=== PATIENT | male | born 2000 | race Caucasian/White ===

== ENCOUNTER 2022-10-15 17:24 | Emergency (ER) | payer MEDICAID, SELFPAY ==
[2022-10-15 19:08] VITALS: BP 125/77; PULSE 85; RESP 20; TEMP 36.1; O2SAT 99; BMI 31.1
--- NOTE | 2022-10-15 19:09 | ED_ITS ---
HPI - Abdominal Pain General Chief Complaint: General Medical <Marisol Nielsen CNP - Last Filed: 10/15/22 19:17> Stated Complaint: Vomiting blood, R lower abdominal pain <Marisol Nielsen CNP - Last Filed: 10/15/22 19:17> Time Seen by Provider: 10/16/22 00:01 <Marisol Nielsen CNP - Last Filed: 10/15/22 19:17> Source: patient <Jose C Cazares MD - Last Filed: 10/16/22 00:34> Mode of arrival: ambulatory <Jose C Cazares MD - Last Filed: 10/16/22 00:34> Limitations: no limitations <Jose C Cazares MD - Last Filed: 10/16/22 00:34> History of Present Illness HPI narrative: Patient otherwise healthy been vomiting for last few days initially had food content now which is vomit blood streaks of blood once or twice small am ount no blood clots no melena use of NSAID complaining of pain in epigastric area mild burning sensation <Jose C Cazares MD - Last Filed: 10/16/22 00:34> Related Data Home Medications: Previous Rx's Medication Instructions Recorded ondansetron 4 mg disintegrating 4 mg PO Q6-8H PRN nausea and 10/16/22 tablet vomiting #7 tabs pantoprazole 40 mg tablet,delayed 40 mg PO DAILY #30 tabs 10/16/22 release (Protonix) sucralfate 1 gram tablet 1 g PO BID #60 tabs 10/16/22 <Marisol Nielsen CNP - Last Filed: 10/15/22 19:17> Allergies/Adverse Reactions: Allergies Allergy/AdvReac Type Severity Reaction Status Date / Time No Known Allergies Allergy Verified 10/15/22 19:12 [No Known Allergies*] <Marisol Nielsen CNP - Last Filed: 10/15/22 19:17> Review of Systems Review of Systems Yes all other systems are reviewed and are negative <Jose C Cazares MD - Last Filed: 10/16/22 00:34> PMFSH Social History Social History: Social History Advance Directives: No Advance Directives Information Provided: No <Marisol NielsenBIANCA - Last Filed: 10/15/22 19:17> Physical Exam ED Vital Signs: Vital Signs - 24 hr 10/15/22 19:08 Temperature 96.9 F Pulse Rate 85 Respiratory Rate 20 Blood Pressure 125/77 Pulse Oximetry 99 Oxygen Delivery Method Room Air BMI result Body Mass Index 31.1 <Marisol NielsenBIANCA - Last Filed: 10/15/22 19:17> Vital Signs - 24 hr 10/15/22 19:08 Temperature 96.9 F Pulse Rate 85 Respiratory Rate 20 Blood Pressure 125/77 Pulse Oximetry 99 Oxygen Delivery Method Room Air BMI result Body Mass Index 31.1 <Jose C Cazares MD - Last Filed: 10/16/22 00:34> Appearance: Alert. Oriented X3. No acute distress. Eyes: PERRLA, No Nystagmus ENT: Pharynx normal. Oral Mucosa moist Neck: Normal inspection. Neck supple. CVS: Normal heart rate and rhythm. Pulses normal. Respiratory: No respiratory distress. Equal air entry bilateral, no wheezing/rales/rhonchi Abdomen: Soft, tenderness in epigastric area no rebound tenderness no guarding Bowel sounds are present, no mass palpable, no CVA tenderness Skin: Skin warm and dry. Normal skin color. Normal skin turgor. Extremities: No lower extremity edema. No calf tenderness Neuro: Oriented X 3. No motor deficit. <Jose C Cazares MD - Last Filed: 10/16/22 00:34> Course Course Course Narrative: This is an RME: Additional HPI, ROS, PE not included below will be deferr ed to primary provider. Patient is a 22-year-old male who presents to the emergency department for e valuation of bloody emesis, onset 1 week ago. 2 episodes of bright bloody emesis today, reports no bile with this. Poor appetite. also having RUQ pain. Denies bloody or dark stools, denies hx of gastric ulcers, denies alcohol consumption. Presented to urgent care today, was unable to be seen and was referred to the ER. One week ago he attempted to be seen at [facility], and 2 nights ago attempted to be seen at [facility] has had blood work done both times, but ultimately has left the emergency room due to prolonged wait times. Plan: labs, zofran PO <Marisol Nielsen CNP - Last Filed: 10/15/22 19:17> Medical Decision Making Medical Decision Making [facility] Narrative: Patient has stable H&H likely from esophagitis will discharge patient home on Protonix and sucralfate advised to follow with GI bleeding continue or get wo rse <Jose C Cazares MD - Last Filed: 10/16/22 00:34> Lab Data [facility] Lab Attestation statement: I reviewed the patient's lab results. <Jose C Cazares MD - Last Filed: 10/16/22 00:34> Result Diagrams: : 10/15/22 19:29 10/15/22 19:29 <Marisol Nielsen CNP - Last Filed: 10/15/22 19:17> Labs: Lab Results 10/15/22 10/15/22 Range/Units 19:29 19:29 WBC 10.2 (4.8-10.8) X10*3/uL RBC 5.40 (4.60-5.80) X10*6/uL Hgb 15.5 (14.0-18.0) g/dl Hct 45.2 (42.0-52.0) % MCV 83.7 (80.0-98.0) fL MCH 28.7 (27.0-33.0) pg MCHC 34.3 (31.0-36.0) g/dl RDW 12.7 (11.0-16.0) % Plt Count 453 H (160-400) X10*3/uL MPV 10.1 (9.4-12.4) fL Immature Gran % (Auto) 0.5 H (0.0-0.4) % Neut % (Auto) 71.4 (45-73) % Lymph % (Auto) 17.9 L (20-40) % [place] % (Auto) 7.1 (2-11) % Eos % (Auto) 2.4 (0-4) % Baso % (Auto) 0.7 (0-2) % Lymph # (Auto) 1.8 (1.2-4.9) X10*3/uL [place] # (Auto) 0.7 (0.1-1.2) X10*3/uL Eos # (Auto) 0.2 (0.0-0.4) X10*3/uL Baso # (Auto) 0.1 (0.0-0.2) X10*3/uL Abs Immat Gran (auto) 0.05 H (0.00-0.03) X10*3/uL Absolute Neuts (auto) 7.3 (2.0-8.3) x10*3/uL Absolute Nucleated RBC 0.000 (0.0-0.012) X10*3/uL Nucleated RBC % (auto) 0.0 (0.0-0.2) /100WBC Sodium 137 (135-145) mmol/L Potassium 4.8 (3.3-5.1) mmol/L Chloride 107 (96-108) mmol/L Carbon Dioxide 23 (22-29) mmol/L Anion Gap 12 (12-20) BUN 8 L (9-16) mg/dL Creatinine 0.92 (0.5-1.4) mg/dL Estim Creat Clear Calc 114.2 Estimated GFR > 60 Random Glucose 80 (60-115) mg/dL Calcium 10.0 (8.4-10.2) mg/dL Total Bilirubin 0.6 (0.0-1.0) mg/dL AST 18 (5-37) U/L ALT 26 (0-40) U/L Alkaline Phosphatase 83 (39-117) U/L Total Protein 8.1 H (6.5-8.0) g/dL Albumin 4.7 (3.5-5.0) g/dL Lipase 24 (8-78) U/L <Marisol Nielsen, PROFESSOR OF COMMUNICATION AND WRITING - Last Filed: 10/15/22 19:17> Lab Results 10/15/22 10/15/22 Range/Units 19:29 19:29 WBC 10.2 (4.8-10.8) X10*3/uL RBC 5.40 (4.60-5.80) X10*6/uL Hgb 15.5 (14.0-18.0) g/dl Hct 45.2 (42.0-52.0) % MCV 83.7 (80.0-98.0) fL MCH 28.7 (27.0-33.0) pg MCHC 34.3 (31.0-36.0) g/dl RDW 12.7 (11.0-16.0) % Plt Count 453 H (160-400) X10*3/uL MPV 10.1 (9.4-12.4) fL Immature Gran % (Auto) 0.5 H (0.0-0.4) % Neut % (Auto) 71.4 (45-73) % Lymph % (Auto) 17.9 L (20-40) % [place] % (Auto) 7.1 (2-11) % Eos % (Auto) 2.4 (0-4) % Baso % (Auto) 0.7 (0-2) % Lymph # (Auto) 1.8 (1.2-4.9) X10*3/uL [place] # (Auto) 0.7 (0.1-1.2) X10*3/uL Eos # (Auto) 0.2 (0.0-0.4) X10*3/uL Baso # (Auto) 0.1 (0.0-0.2) X10*3/uL Abs Immat Gran (auto) 0.05 H (0.00-0.03) X10*3/uL Absolute Neuts (auto) 7.3 (2.0-8.3) x10*3/uL Absolute Nucleated RBC 0.000 (0.0-0.012) X10*3/uL Nucleated RBC % (auto) 0.0 (0.0-0.2) /100WBC Sodium 137 (135-145) mmol/L Potassium 4.8 (3.3-5.1) mmol/L Chloride 107 (96-108) mmol/L Carbon Dioxide 23 (22-29) mmol/L Anion Gap 12 (12-20) BUN 8 L (9-16) mg/dL Creatinine 0.92 (0.5-1.4) mg/dL Estim Creat Clear Calc 114.2 Estimated GFR > 60 Random Glucose 80 (60-115) mg/dL Calcium 10.0 (8.4-10.2) mg/dL Total Bilirubin 0.6 (0.0-1.0) mg/dL AST 18 (5-37) U/L ALT 26 (0-40) U/L Alkaline Phosphatase 83 (39-117) U/L Total Protein 8.1 H (6.5-8.0) g/dL Albumin 4.7 (3.5-5.0) g/dL Lipase 24 (8-78) U/L <Jose C Cazares MD - Last Filed: 10/16/22 00:34> Medications Administered Discontinued Medications Generic Name Dose Route Start Last Admin Trade Name Freq PRN Reason Stop Dose Admin Al Hydroxide/Mg Hydroxide 30 ml 10/16/22 00:10 10/16/22 00:22 Magnesium Hydrox/Alum Hydrox 30 Ml Oral.Susp PO 10/16/22 00:11 30 ml ONCE ONE Administration Omeprazole 40 mg 10/16/22 00:10 10/16/22 00:22 Omeprazole 40 Mg Capsule. PO 10/16/22 00:11 40 mg ONCE ONE Administration Ondansetron HCl 4 mg 10/15/22 19:13 10/15/22 19:17 Ondansetron Odt 4 Mg Tab.[employer] TRANSLINGU 10/15/22 19:14 4 mg ONCE ONE Administration <Marisol Nielsen CNP - Last Filed: 10/15/22 19:17> Medications Administered Discontinued Medications Generic Name Dose Route Start Last Admin Trade Name Freq PRN Reason Stop Dose Admin Al Hydroxide/Mg Hydroxide 30 ml 10/16/22 00:10 10/16/22 00:22 Magnesium Hydrox/Alum Hydrox 30 Ml Oral.Susp PO 10/16/22 00:11 30 ml ONCE ONE Administration Omeprazole 40 mg 10/16/22 00:10 10/16/22 00:22 Omeprazole 40 Mg Capsule. PO 10/16/22 00:11 40 mg ONCE ONE Administration Ondansetron HCl 4 mg 10/15/22 19:13 10/15/22 19:17 Ondansetron Odt 4 Mg Tab.Rapdis TRANSLINGU 10/15/22 19:14 4 mg ONCE ONE Administration <Jose C Cazares MD - Last Filed: 10/16/22 00:34> Discharge Plan Discharge Clinical Impression: Acute esophagitis <Marisol Nielsen CNP - Last Filed: 10/15/22 19:17> Patient Disposition: Home, Self-Care <Marisol Nielsen CNP - Last Filed: 10/15/22 19:17> Instructions: Esophagitis (ED) <Marisol Nielsen CNP - Last Filed: 10/15/22 19:17> Additional Instructions: Avoid fried/spicy Take medication as prescribed Report to the ER if black stools/increased vomiting with blood Follow-up with gastroenterology <Marisol Nielsen CNP - Last Filed: 10/15/22 19:17> Prescriptions: New pantoprazole [Protonix] 40 mg tablet,delayed release (DR/EC) 40 mg PO DAILY Qty: 30 0RF sucralfate 1 gram tablet 1 g PO BID Qty: 60 0RF ondansetron 4 mg tablet,disintegrating 4 mg PO Q6-8H PRN (Reason: nausea and vomiting) Qty: 7 0RF <Marisol Nielsen CNP - Last Filed: 10/15/22 19:17> Referrals: Murphy Anderson MD [Physician] - 2 weeks <Marisol Nielsen CNP - Last Filed: 10/15/22 19:17> Stand Alone Forms: Work/School Release <Marisol Nielsen CNP - Last Filed: 10/15/22 19:17>
[2022-10-15] MEDS: Ondansetron ODT 4 MG TAB.RAPDIS TRANSLINGU (19:17)
[2022-10-15 19:34] LABS: MANUAL DIFF FLAG NO
[2022-10-15 19:36] LABS: Basophils Absolute Auto 0.1 X10*3/uL (0.0-0.2); Basophils Percent Auto 0.7 % (0-2); Eosinophils Absolute Auto 0.2 X10*3/uL (0.0-0.4); Eosinophils Percent Auto 2.4 % (0-4); Hematocrit 45.2 % (42.0-52.0); Hemoglobin 15.5 g/dl (14.0-18.0); Imm Gran Abs Auto 0.05 X10*3/uL (0.00-0.03); Imm Gran Pct Auto 0.5 % (0.0-0.4); Lymphocytes Absolute Auto 1.8 X10*3/uL (1.2-4.9); Lymphocytes Percent Auto 17.9 % (20-40); Mean Corpuscular HGB Conc 34.3 g/dl (31.0-36.0); Mean Corpuscular Hemoglobin 28.7 pg (27.0-33.0); Mean Corpuscular Volume 83.7 fL (80.0-98.0); Mean Platelet Volume 10.1 fL (9.4-12.4); Monocytes Absolute Auto 0.7 X10*3/uL (0.1-1.2); Monocytes Percent Auto 7.1 % (2-11); Neutrophils Absolute Auto 7.3 x10*3/uL (2.0-8.3); Neutrophils Percent Auto 71.4 % (45-73); Platelet Count 453 X10*3/uL (160-400); Red Cell Distribution Width 12.7 % (11.0-16.0); White Blood Count 10.2 X10*3/uL (4.8-10.8)
[2022-10-15 19:54] LABS: Alanine Aminotransferase 26 U/L (0-40); Albumin Level 4.7 g/dL (3.5-5.0); Alkaline Phosphatase 83 U/L (39-117); Anion Gap 12 (12-20); Aspartate Amino Transferase 18 U/L (5-37); Bilirubin Total 0.6 mg/dL (0.0-1.0); Blood Urea Nitrogen 8 mg/dL (9-16); Carbon Dioxide 23 mmol/L (22-29); Chloride 107 mmol/L (96-108); Creatinine Clr Calc Pharmacy 114.2; Estimated Glomerular Filt Rate > 60; Glucose Random 80 mg/dL (60-115); Lipase 24 U/L (8-78); Potassium 4.8 mmol/L (3.3-5.1); Sodium 137 mmol/L (135-145); Total Protein 8.1 g/dL (6.5-8.0)
[2022-10-16] MEDS: Omeprazole 40 MG CAPSULE.DR PO (00:22)
[2022-10-16] MEDS: Magnesium Hydrox/Alum Hydrox 30 ML ORAL.SUSP PO (00:22)
== END 2022-10-16 00:47 | disposition home or self-care (01) ==
PROVIDERS: Nurse Practitioner Family; Emergency Provider Internal Medicine
DX: K20.90 Esophagitis, unspecified without bleeding (principal); R10.31 Right lower quadrant pain; K92.0 Hematemesis; Z79.899 Other long term (current) drug therapy
CPT/HCPCS: 36415; 80053; 83690; 85025; 99282; 99283